=== PATIENT | female | born 1995 | race Two or more races ===

== ENCOUNTER 2020-04-05 08:26 | Outpatient (REF) | payer OTHER, SELFPAY | END 2020-04-05 08:27 | disposition home or self-care (01) | LOC: HO.LAB 08:26 | PROVIDERS: PCP Pediatrics; Visit Provider Internal Medicine | DX: Z20.828 Contact with and (suspected) exposure to other viral communicable diseases (principal) | CPT/HCPCS: C9803; U0003 ==

== ENCOUNTER 2024-07-30 14:16 | Outpatient (AMB) | payer OTHER, SELFPAY ==
[2024-07-30 14:20] VITALS: BP 106/60; BMI 26.0
--- NOTE | 2024-07-30 14:20 | MHC.OFFVIS ---
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 She has lots of questions about control she wants to know about all of the methods but in particular the ParaGard IUD and also about fertility awareness and how to know when she is ovulating she follows with an mary but she is not aware of the other symptoms and signs she is currently using her mary to tell her when are safe days and they are using condoms on the other days. She has 1 child born 05/11/2021 at [facility] she moved to [facility] for a while after an now she is back. [facility]LY [facility] Medical History (Updated 07/30/24 @ 15:22 by Lakesha Coello CNM) Pigmentary glaucoma Surgical History (Updated 07/30/24 @ 14:26 by ANTWAN Blevins) H/O eye surgery Family History (Updated 07/30/24 @ 14:27 by ANTWAN Blevins) Maternal Grandmother Ovarian cancer Social History (Updated 07/30/24 @ 14:27 by ANTWAN Blevins) Alcohol intake: never Patient Tobacco Use Status: Never used Tobacco Sexual orientation: Straight/Heterosexual Gender identity: Female Female Reproductive History Menstrual Age of Menarche: 8 Duration of menses: 6-7 days Date of last menstrual period: 07/13/24 control method: none Total pregnancies: 1 Full term: 1 Number of Living Children: 1 Physical Exam Vital Signs: Last Vital Signs BP 106/60 07/30/24 14:20 BMI result Body Mass Index 26.0 Const General: healthy appearing, comfortable, no acute distress, well developed and alert Nutritional Appearance: average body habitus Orientation/consciousness: patient oriented x3 Limitations: no limitations HEENT Head: Yes normocephalic Neck Neck: Yes normal visual inspection Chest Chest palpation & inspection: normal inspection of the chest Breast/axilla inspection: normal inspection of the breasts and normal inspection of the axillae Breast/axilla palpation: normal palpation of the breasts and normal palpation of the axillae Resp Effort & Inspection: normal respiratory effort GI Inspection: Yes normal to inspection, No Abdominal wall edema and No distended Palpation (GI): Soft to palpation and nontender Other: External exam within normal limits vagina is pink and moist cervix appears healthy multiparous with normal healthy appearing mucus possibly consistent with somewhat recent ovulation but not definitive cervix long close thick mobile nontender uterus is midposition mobile nontender no abnormal discharge noted cervix was friable with Pap and started bleeding immediately with Cytobrush. Moderate tone with Kegel. General: Yes bladder normal to palpation External Female Exam: normal external appearance and normal appearance of the urethra Speculum Exam - Vagina: normal appearance of the vagina, normal palpation and normal vaginal discharge Speculum Exam - Cervix: normal appearance of the cervix, normal palpation and nontender Bimanual exam- vagina & uterus: normal bimanual exam, normal palpation, uterine size normal, bladder normal to palpation, consistency normal, normal palpation, uterine mobility normal, uterine shape normal, No Cervical tenderness present, non-tender and no cervical motion tenderness Bimanual Exam- Adnexa, other: normal adnexae, no masses, normal and No adnexal tenderness Neuro General: patient oriented x3 Assessment & Plan Assessment & Plan (1) Well woman exam with routine gynecological exam: Code(s): Z01.419 - Encounter for gynecological examination (general) (routine) without abnormal findings Category: Medical (2) Cervical cancer screening: Code(s): Z12.4 - Encounter for screening for malignant neoplasm of cervix Category: Medical (3) control counseling: Code(s): Z30.09 - Encounter for other general counseling and advice on contraception Category: Medical (4) Encounter for screening examination for sexually transmitted disease: Code(s): Z11.3 - Encounter for screening for infections with a predominantly sexual mode of transmission Category: Medical Plan -----Discussed in this visit the following: healthy balanced diet, regular and consistent exercise, getting recommended health screens, doing the best she can for her particular health concerns, kegel exercises, pap smear screening and followup recommendations, mammography screening and SBE, normal changes in cycles in her life stage--- .-I reviewed with the patient, all of the currently common used methods of control that are available. We reviewed how they work in the body, how they are taken, common side effects, uncommon side effects, precautions, and contraindications. -Discussed also factors that influence their effectiveness and use, and womens satisfaction with the method. -Discussed how each are used, and drawbacks of each method as well. -Methods covered included: condoms, control pills, control patches, control rings, Depo-Provera, Nexplanon, Mirena and Kyleena IUDs, and ParaGard IUDs. All of the above methods were covered in great detail including their side effect profiles and common experiences that women have and ways to mitigate against the negative experiences including attention to diet and exercise patient's with bleeding challenges that may occur her and efforts to time the initiation of the method to this start of the menstrual period. Extensive teaching about the ParaGard IUD because that was her main method of concern and also extensive teaching about fertility awareness and all of its signs and symptoms and all of the close that she can use help tell when she is ovulating and to protection for several days on either side of the window . Orders: Orders Pap Smear Today Z01.419 - Encounter for gynecological examination (general) (routine) without abnormal findings Bacterial Vaginosis Panel Today Z01.419 - Encounter for gynecological examination (general) (routine) without abnormal findings CT NG by PCR Today Z01.419 - Encounter for gynecological examination (general) (routine) without abnormal findings Coding Level of Care Code New Pt Prev Care 18-39yr([id number] Diagnoses Well woman exam with routine gynecological exam Z01.419 Cervical cancer screening Z12.4 control counseling Z30.09 Encounter for screening examination for sexually transmitted disease Z11.3
--- OUTSIDE RECORDS SUMMARY | 2024-07-30 16:18 | XMS_ITS | Clinical Summary ---
Author Organization [facility] Address [address] [place] [address] Phone Care Team Providers Care Bindery Chief Name Role Phone Laury Madera MD Primary Care Provider [phone] Allergies Active Allergy Reactions Criticality Noted Date Comments Other Anaphylaxis High 05/08/2018 Seafood Pt has epipen Penicillins Low 07/24/2008 Other Reaction(s): Rash/Dermatitis Medications PNV/iron,carbon yl/folic acid ( VIT-IRON CARBONYL-FA ORAL) Take 1 tablet by mouth 1 (one) time each day. 0 Active EPINEPHrine (EpiPen 2-Atul) 0.3 mg/0.3 mL injection Inject 0.3 mg into the muscle as needed for Other (anaphylactic reaction). 2-pack. Fill with whichever brand is covered by insurance. 0 Active albuterol HFA (ProAir HFA) 90 mcg/actuation inhaler INHALE 2 PUFFS INTO THE LUNGS EVERY 4 HOURS NEEDED FOR COUGH 9 Active fluticasone propionate (FLONASE) 50 mcg/actuation nasal spray 2 sprays in each nostril daily 8 Active latanoprost (XALATAN) 0.005 % ophthalmic solution 1 Drop at bedtime. Apply 1 drop in each eye daily Active Active Problems Problem Noted Date Diagnosed Date Glaucoma 05/24/2024 Overview (05/24/2024): Pt takes xalatan ophthalmic solution q HS. Pt states she doesn't have a diagnosis of glaucoma - she uses solution for prevention. 2016 she had a procedure to remove excess intraocular fluid . FHX: Maternal grandmother with glaucoma Pt states in [facility] she was told she would need a delivery r/t this. Pt unable to get Ophtho appt until Apr. Patient was seen by ophthalmology Marcelino Souza MD On March 31, 2021 (note sent for scanning) Plan Dr. Souza recommends either option/safest option for the patient medically as long as the patient brings her eyedrops and is receiving them WHILE IN THE HOSPITAL. As long asIOP is being controlled by latanoprost while the patient is in the hospital, either method is okay. Patient is to return in 6 months for DFE evaluation after delivery renal anomaly, single gestation 03/14/2021 Overview (05/24/2024): Bilateral pelviectasis Persistent on repeat US Referral to Pediatric Surgery placed [phone] --Ointment scheduled for the week of May 04 Recurrent UTI (urinary tract infection) complicating 03/11/2021 Overview (05/24/2024): Per Transfer record - pt treated for UTI 10/20/20 UTI 12/15/20 UTI treated with cefadroxil 03/02/21 UTI treated with cefadroxil Immunizations Name Administration Dates Next Due DTaP (Infanrix) 6wks to less than 7yo ,02/02/1996,04/18/1995,02/08,1994 [id number] (Pentacel) 2mo to less than 5yo 09/17/1998,04/14/1995,02/08/1995,12/08 HPV, Quadrivalent 09/29/2009,08/16/2008,02/15/20 08 Hepatitis A Pediatric (Havri x; Vaqta) 12mo to less than 19yo 11/05/2014,11/22/2012 Hepatitis B Pediatric (Enger ix B; Recombivax HB) to less than 20 yo 06/18/1995,1994,1994 IPV Inactivated polio (Ipol) 6wks and older 12/17/1998,04/18/1995,02/08/1995,12/08 Influenza Quadravalent, MDCK , 0.5ml, preservative free (Flucelvax) 6mo and older 05/08/2018 MMR, measles mumps and rubel la Live (Priorix; M-M-R II) 12mo and older 01/03/1999,10/27/1995 Meningococcal MCV4P 01/03/2006 Moderna SARS-CoV-2 COVID-19, mRNA, LNP-S, preservative free 02/18/2021,01/21/2021 Pneumococcal polysaccharide 23 valent (Pneumovax 23) 2yo and older 05/08/2018 Tdap Tetanus diptheria acell ular pertussis (Boostrix; Adacel) 7yo and older 03/16/2021,05/08/2018,01/03/2006 Varicella live (Varivax) 12m o and older 08/16/2008,11/10/2004 Surgical History Surgery Date Site/Laterality Comments COLONOSCOPY 04/27/2013 PROCEDURE: HISTORICAL COLONOSCOPY; COMMENT: negative UPPER GASTROINTESTINAL ENDOSCOPY 04/27/2013 PROCEDURE: [place] UPPER GI ENDOSCOPY PERFORMED EYE SURGERY 06/2016 Left PROCEDURE: HISTORICAL EYE SURGERY Medical History Medical History Date Comments Asthma DX:Asthma Glaucoma DX:Glaucoma Vitamin D deficiency 2019 DX:Vitamin D deficiency Glaucoma 05/24/2024 Family History Medical History Relation Name Comments Other: no information Father Colon polyps Maternal Grandmother >10 Glaucoma Maternal Grandmother hyperte nsion Uterine cancer Maternal Grandmother Other: endometriosis Mother Uterine cancer Mother mother, uteri ne cancer <50 Ulcerative colitis Other 1 Uterine cancer Other 2 mets to liver and lungs; maternal great aunt Other: stomach cancer Other 3 matern al uncle 3 Prostate cancer Uncle 1 maternal unc le 1 Other: stomach cancer Uncle 2 matern al uncle 2 Blindness Neg Hx Breast cancer Neg Hx Cataracts Neg Hx Colon cancer Neg Hx Macular degeneration Neg Hx Strabismus Neg Hx Relation Name Status Comments Father Maternal Grandmother Alive Mother Other 1 Other 2 Alive Other 3 Other 4 paternal side unknown Alive Uncle 1 Alive Uncle 2 Alive Social History Tobacco Use Types Packs/Day Years Used Date Smoking Tobacco: Never Smokeless Tobacco: Never Alcohol Use Standard Drinks/Week Comments No 0 (1 standard drink = 0.6 oz pur e alcohol) Comments Unknown Sex and Gender Information Value Date Recorded Sex Assigned at Not on file Legal Sex Female 2:14 AM EST Gender Identity Not on file Sexual Orientation Not on file Obstetrics History Plan of Treatment Upcoming Encounters Date Type Department Care Team (Late st Contact Info) Description 10/17/2024 11:15 AM EDT Office Visit Obstetrics and Gynecology - [place] [address] [place] [address] Kelsea Etienne, CNM [address] [place] [address] Health Maintenance Due Date Last Done Comments Hepatitis A Vaccines (2 of 2 - 2-dose series) 05/07/2015 11/05/2014, 11/22/2012 Depression Screening 04/25/2022 HIV Screening 04/25/2022 Hepatitis C Screening 04/25/2022 Social Influencers of Health Screening 04/25/2022 Cervical Cancer Screening: Pap Smear 04/29/2023 04/29/2020, 04/08/2020 COVID-19 Vaccine ( season) 2024 02/18/2021, 01/21/2021 Influenza Vaccine (#1) 2024 05/08/2018 DTaP,Tdap,and Td Vaccines (8 - Td or Tdap) 03/16/2031 03/16/2021, 05/08/2018, 01/03/2006, Additional history exists Hepatitis B Vaccines Completed 06/18/1995, 1994, 1994 HIB Vaccines Completed 09/17/1998, 03/24, 02/08/1995, Additional history exists IPV Vaccines Completed 12/17/1998, 08/22, 04/18/1995, Additional history exists MMR Vaccines Completed 01/03/1999, 10/27/1995 Meningococcal ACWY Vaccine Aged Out 01/03/2006 N o longer eligible based on patient's age to complete this topic Varicella Vaccines Completed 08/16/2008, 11/10/2004 HPV Vaccines Completed 09/29/2009, 07/22, 02/15/2008 Pneumococcal Vaccine: Pediatrics (0 to 5 Years) and At-Risk Patients (6 to 64 Years) Aged Out 05/08/2018 No longer eligible based on patient's age to complete this topic Meningococcal B Vacine Aged Out No lo nger eligible based on patient's age to complete this topic RSV Immunization Patients Under 20 months Aged Out No longer eligible based on patient's age to complete this topic Procedures Procedure Name Priority Date/Time Associated Diagnosis Comments PAP SMEAR Routine 04/29/2020 from Last 3 Months or Most Recently Relevant to Health Maintenance Results * Pap Smear (04/29/2020) Pap smear Negative, Abstracted us Historical Provider HEALTH MAINTENANCE Final Result from Last 3 Months or Most Recently Relevant to Health Maintenance [place] [address] [address] [place] [address] Care Teams Bindery Chief Relationship Specialty Start Date End Date Laury Madera MD [address] [facility] [address] [place] [phone] PCP - General Internal Medicine 03/14/20
== END 2024-07-30 15:23 | disposition home or self-care (01) ==
PROVIDERS: PCP Pediatrics; Visit Provider Advanced Practice Midwife
DX: Z01.419 Encounter for gynecological examination (general) (routine) without abnormal findings (principal); Z12.4 Encounter for screening for malignant neoplasm of cervix; Z30.09 Encounter for other general counseling and advice on contraception; Z11.3 Encounter for screening for infections with a predominantly sexual mode of transmission
CPT/HCPCS: 99385; 99459

== ENCOUNTER 2024-07-30 14:16 | Outpatient (REF) | payer MEDICAID, SELFPAY ==
[2024-07-30 17:21] LABS: Bacterial Vaginosis PCR NEGATIVE (Negative); Candida Group PCR NOT DETECTED (Not Detect); Candida glab krusei PCR NOT DETECTED (Not Detect); Trichomonas vaginalis PCR NOT DETECTED (Not Detect)
--- OUTSIDE RECORDS SUMMARY | 2024-07-30 17:21 | XMS_ITS | Encounter Summary ---
Author Organization [facility] Address [address] [place] [address] Phone Care Team Providers Care Brake Reliner Name Role Phone Fadumo Awad MD Primary Care Provider [phone] Encounter Details Date Type Department Care Team (Late st Contact Info) Description 06/10/2010 Documentation [facility] [place] Family Medicine [address] [place] [address] Family Medicine, Physician [address] [place], [place] [id number] Social History Tobacco Use Types Packs/Day Years Used Date Smoking Tobacco: Never Assessed Comments Unknown Sex and Gender Information Value Date Recorded Sex Assigned at Not on file Legal Sex Female 5:01 PM EDT Gender Identity Not on file Sexual Orientation Not on file documented as of this encounter Plan of Treatment Not on file documented as of this encounter Visit Diagnoses Not on filedocumented in this encounter Care Teams Brake Reliner Relationship Specialty Start Date End Date Fadumo Awad MD [address] [place] [address] [place] [address] PCP - General 12/31/16 09/02/22 documented as of this encounter
--- OUTSIDE RECORDS SUMMARY | 2024-07-30 17:21 | XMS_ITS | Encounter Summary ---
Author Organization [facility] Address [address] [place] [address] Phone Care Team Providers Care Adult Neuropsychologist Name Role Phone Fadumo Awad MD Primary Care Provider [phone] Encounter Details Date Type Department Care Team (Late st Contact Info) Description 03/08/2012 Documentation [facility] [place] Family Medicine [address] [place] [address] Family Medicine, Physician [address] [place], [place] [phone] Social History Tobacco Use Types Packs/Day Years [...] on filedocumented in this encounter Care Teams Adult Neuropsychologist Relationship Specialty Start Date End Date Fadumo Awad MD [address] [place] [address] [place] [address] PCP - General 12/31/16 09/02/22 documented as of this encounter
--- OUTSIDE RECORDS SUMMARY | 2024-07-30 17:21 | XMS_ITS | Encounter Summary ---
Author Organization [facility] Address [address] [place] [address] Phone Care Team Providers Care Cellophane Bath Mixer Name Role Phone Fadumo Awad MD Primary Care Provider [phone] Encounter Details Date Type Department Care Team (Late st Contact Info) Description 01/06/2017 Conversion Encounter [facility] [place] [address] [place] [address] Social History Tobacco Use Types Packs/Day Years Used Date Smoking Tobacco: Never Comments:Never smoker Comments Unknown Sex and Gender Information Value Date Recorded Sex Assigned at Not on file Legal Sex Female 5:01 PM EDT Gender Identity Not on file Sexual Orientation Not on file documented as of this encounter Plan of Treatment Not on file documented as of this encounter Visit Diagnoses Not on filedocumented in this encounter Care Teams Cellophane Bath Mixer Relationship Specialty Start Date End Date Fadumo Awad MD [address] [place] [address] PCP - General 12/31/16 09/02/22 documented as of this encounter
--- OUTSIDE RECORDS SUMMARY | 2024-07-30 17:21 | XMS_ITS | Encounter Summary ---
Author Organization [facility] Address [address] [place] [address] Phone Care Team Providers Care Truck Cleaner Name Role Phone Fadumo Awad MD Primary Care Provider [phone] Encounter Details Date Type Department Care Team (Late st Contact Info) Description 02/29/2012 Documentation [facility] [place] [address] [place] [address] Family Medicine, Physician [address] [place], [place] [phone] Social History Tobacco Use Types Packs/Day Years [...] on filedocumented in this encounter Care Teams Truck Cleaner Relationship Specialty Start Date End Date Fadumo Awad MD [address] [place] [address] [place] [address] PCP - General 12/31/16 09/02/22 documented as of this encounter
--- OUTSIDE RECORDS SUMMARY | 2024-07-30 17:21 | XMS_ITS | Encounter Summary ---
Author Organization [facility] Address [address] [place] [address] Phone Care Team Providers Care Ax Survey Worker Name Role Phone Fadumo Awad MD Primary Care Provider [phone] Encounter Details Date Type Department Care Team (Late st Contact Info) Description 02/29/2012 Documentation [facility] [place] Family Medicine [address] [place] [address] Family Medicine, Physician [address] [place], [place] [phone] Social History Tobacco Use Types Packs/Day Years [...] on filedocumented in this encounter Care Teams Ax Survey Worker Relationship Specialty Start Date End Date Fadumo Awad MD [address] [place] [address] [place] [address] PCP - General 12/31/16 09/02/22 documented as of this encounter
--- OUTSIDE RECORDS SUMMARY | 2024-07-30 17:21 | XMS_ITS | Encounter Summary ---
Author Organization [facility] Address [address] [place] [address] Phone Care Team Providers Care Agriculture Engineer Name Role Phone Fadumo Awad MD Primary Care Provider [phone] Encounter Details Date Type Department Care Team (Late st Contact Info) Description 06/19/2012 Documentation [facility] [place] Family Medicine [address] [place] [address] Family Medicine, Physician [address] [place], [place] [phone] Social History Tobacco Use Types Packs/Day Years [...] on filedocumented in this encounter Care Teams Agriculture Engineer Relationship Specialty Start Date End Date Fadumo Awad MD [address] [place] [address] [place] [address] PCP - General 12/31/16 09/02/22 documented as of this encounter
--- OUTSIDE RECORDS SUMMARY | 2024-07-30 17:21 | XMS_ITS | Clinical Summary ---
Author Organization [facility] Address [address] [place] [address] Phone Care Team Providers Care Ambulance Assistant Name Role Phone Laury Madera MD Primary Care Provider [phone] Allergies Active Allergy Reactions Criticality Noted Date [...] Maternal grandmother with glaucoma Pt states in health system she was told she would need a [...] repeat US Referral to Pediatric Surgery placed [phone] --Ointment scheduled for the week of May 04 Recurrent UTI (urinary tract infection) complicating 03/11/2021 Overview (05/24/2024): Per Transfer record - pt treated for UTI 10/20/20 UTI 12/15/20 UTI treated with cefadroxil 03/02/21 UTI treated with cefadroxil Immunizations Name Administration Dates Next Due DTaP (Infanrix) 6wks to less than 7yo ,02/02/1996,04/18/1995,02/08,1994 [id number] (Pentacel) 2mo to less than 5yo 09/17/1998,04/14/1995,02/08/1995,12/08 [...] COMMENT: negative UPPER GASTROINTESTINAL ENDOSCOPY 04/27/2013 PROCEDURE: [place] UPPER GI ENDOSCOPY PERFORMED EYE SURGERY 06/2016 [...] EDT Office Visit Obstetrics and Gynecology - [place] [address] [place] [address] Kelsea Etienne, CNM [address] [place] [address] Health Maintenance Due Date Last Done Comments [...] Most Recently Relevant to Health Maintenance [place] [address] [place] [address] [address] [place] [address] Care Teams Ambulance Assistant Relationship Specialty Start Date End Date Laury Madera MD [address] [facility] [address] [place] [phone] PCP - General Internal Medicine 03/14/20
--- OUTSIDE RECORDS SUMMARY | 2024-07-30 17:21 | XMS_ITS | Encounter Summary ---
Author Organization [facility] Address [address] [place] [address] Phone Care Team Providers Care Mortgage Processing Manager Name Role Phone Fadumo Awad MD Primary Care Provider [phone] Encounter Details Date Type Department Care Team (Late st Contact Info) Description 02/21/2013 Documentation [facility] [place] Family Medicine [address] [place] [address] Family Medicine, Physician [address] [place], [place] [phone] Social History Tobacco Use Types Packs/Day Years [...] on filedocumented in this encounter Care Teams Mortgage Processing Manager Relationship Specialty Start Date End Date Fadumo Awad MD [address] [place] [address] [place] [address] PCP - General 12/31/16 09/02/22 documented as of this encounter
--- OUTSIDE RECORDS SUMMARY | 2024-07-30 17:21 | XMS_ITS | Clinical Summary ---
Author Organization [facility] Address [address] [place] [id number] Phone Care Team Providers Care Crimping Machine Operator Name Role Phone Unavailable Primary Care Provider Unavailabl e Immunizations Immunization Administration Dates Next Due DTaP 5 12/17/1998, 6,04/18/1995,02/08/1995 ,1994 HPV, Quadrivalent 09/29/2009,08/16/2008,02/15/20 08 Hep A, Adult 11/05/2014 Hep A, ped/adol 11/05/2014,11/22/2012 Hep B, ped/adol 1994,1994 Hib (PRP-T) 09/17/1998,04/14/1995,02/08/1995 ,1994 IPV 12/17/1998,04/18/1995,02/08/1995 ,1994 Influenza, injectable, trivalent 02/28/2007 MMR 01/03/1999,10/27/1995 Meningococcal Polysaccharide 01/03/2006 Tdap 01/03/2006 Varicella 08/16/2008,11/10/2004 Family History Relation Name Status Comments Brother Brother: Asthma Maternal Grandmother Materna l grandmother: Migraines Mother Alive Mother: Endomet riosis Other Family history of Migraines, Family history of Asthma Social History Tobacco Use Types Packs/Day Years Used Date Smoking Tobacco: Never Comments:Never smoker Comments Unknown Sex and Gender Information Value Date Recorded Sex Assigned at Not on file Legal Sex Female 5:01 PM EDT Gender Identity Not on file Sexual Orientation Not on file Last Filed Vital Signs Vital Sign Reading Time Taken Comments Blood Pressure 108/69 05/14/2015 12:00 AM EST Pulse 118 11/05/2014 12:00 AM EDT Temperature 37.1 ??C (98.8 ??F) 05/14/2015 1 2:00 AM EST Respiratory Rate - - Oxygen Saturation - - Inhaled Oxygen Concentration - - Weight 52.1 kg (114 lb 12.8 oz) 015 12:00 AM EST Height 158.5 cm (5' 2.4 ) 11/05/2014 12 :00 AM EDT Body Mass Index 20.73 11/05/2014 12:00 AM EDT Plan of Treatment Health Maintenance Due Date Last Done Comments Hepatitis B Vaccines (3 of 3 - 3-dose series) 04/10/1995 1994, 1994 Consider Men B Vaccine (1 of 2 - Bexsero 2-dose series) 2010 DTaP,Tdap,and Td Vaccines (7 - Td or Tdap) 01/04/2016 01/03/2006, 12/17/1998, 02/02/1996, Additional history exists Influenza Vaccines (#1) 2023 02/28/2007 COVID-19 Vaccine ( season) 2024 HIB Vaccines Completed 09/17/1998, 03/24, 02/08/1995, Additional history exists IPV Vaccines Completed 12/17/1998, 03/24, 02/08/1995, Additional history exists MMR Vaccines Completed 01/03/1999, 10/27/1995 Varicella Vaccines Completed 08/16/2008, 11/10/2004 HPV Vaccines Completed 09/29/2009, 07/22, 02/15/2008 Hepatitis A Vaccines Completed 11/05/2014, 11/05/2014, 11/22/2012 Men B Vaccine Aged Out No longer luis daniel garcia based on patient's age to complete this topic Meningococcal Vaccine Aged Out No dar elvira eligible based on patient's age to complete this topic Pneumococcal Vaccine Aged Out No long er eligible based on patient's age to complete this topic
--- OUTSIDE RECORDS SUMMARY | 2024-07-30 17:21 | XMS_ITS | Encounter Summary ---
Author Organization [facility] Address [address] [place] [phone] Phone Care Team Providers Care Security Door Installer Name Role Phone Fadumo Awad MD Primary Care Provider [phone] Encounter Details Date Type Department Care Team (Late st Contact Info) Description 03/16/2012 Documentation [facility] [place] Family Medicine [address] [place] [address] Family Medicine, Physician [address] [place], [place] [id number] Social History Tobacco Use Types Packs/Day Years [...] on filedocumented in this encounter Care Teams Security Door Installer Relationship Specialty Start Date End Date Fadumo Awad MD [address] [place] [address] [place] [address] PCP - General 12/31/16 09/02/22 documented as of this encounter
--- OUTSIDE RECORDS SUMMARY | 2024-07-30 17:21 | XMS_ITS | Encounter Summary ---
Author Organization [facility] Address [address] [place] [address] Phone Care Team Providers Care Mold Capper Helper Name Role Phone Fadumo Awad MD Primary Care Provider Encounter Details Date Type Department Care Team (Late st Contact Info) Description 04/30/2013 Documentation [facility] [place] [address] [place] [address] Family Medicine, Physician [address] [place], [place] [phone] Social History Tobacco Use Types Packs/Day Years [...] on filedocumented in this encounter Care Teams Mold Capper Helper Relationship Specialty Start Date End Date Fadumo Awad MD [address] [place] [address] [place] [address] PCP - General 12/31/16 09/02/22 documented as of this encounter
--- OUTSIDE RECORDS SUMMARY | 2024-07-30 17:21 | XMS_ITS | Encounter Summary ---
Author Organization [facility] Address [address] [place] [address] Phone Care Team Providers Care Transformer Stock Clerk Name Role Phone Fadumo Awad MD Primary Care Provider [phone] Encounter Details Date Type Department Care Team (Late st Contact Info) Description 03/21/2013 Documentation [facility] [place] [address] [place] [address] Family Medicine, Physician [address] [place], [place] [phone] Social History Tobacco Use Types Packs/Day Years [...] on filedocumented in this encounter Care Teams Transformer Stock Clerk Relationship Specialty Start Date End Date Fadumo Awad MD [address] [place] [address] [place] [address] PCP - General 12/31/16 09/02/22 documented as of this encounter
--- OUTSIDE RECORDS SUMMARY | 2024-07-30 17:21 | XMS_ITS | Encounter Summary ---
Author Organization [facility] Address [address] [place] [address] Phone Care Team Providers Care Baffle Installer Name Role Phone Fadumo Awad MD Primary Care Provider [phone] Encounter Details Date Type Department Care Team (Late st Contact Info) Description 03/08/2012 Documentation [facility] [place] Family Medicine [address] [place] [address] Family Medicine, Physician [address] [place], [place] [phone] Social History Tobacco Use Types Packs/Day Years [...] on filedocumented in this encounter Care Teams Baffle Installer Relationship Specialty Start Date End Date Fadumo Awad MD [address] [place] [address] [place] [address] PCP - General 12/31/16 09/02/22 documented as of this encounter
--- OUTSIDE RECORDS SUMMARY | 2024-07-30 17:21 | XMS_ITS | Encounter Summary ---
Author Organization [facility] Address [address] [place] [address] Phone Care Team Providers Care Staff Educator Name Role Phone Fadumo Awad MD Primary Care Provider [phone] Encounter Details Date Type Department Care Team (Late st Contact Info) Description 05/21/2015 Documentation [facility] [place] [address] [place] [address] Family Medicine, Physician [address] [place], [place] [phone] Social History Tobacco Use Types Packs/Day Years [...] on filedocumented in this encounter Care Teams Staff Educator Relationship Specialty Start Date End Date Fadumo Awad MD [address] [place] [address] [place] [address] PCP - General 12/31/16 09/02/22 documented as of this encounter
[2024-07-30 17:50] LABS: CT PCR NOT DETECTED (Not Detect.); NG PCR NOT DETECTED (Not Detect.)
== END 2024-07-30 14:17 | disposition home or self-care (01) ==
LOC: HO.LNP 14:16
PROVIDERS: PCP Pediatrics; Visit Provider Advanced Practice Midwife
DX: Z01.419 Encounter for gynecological examination (general) (routine) without abnormal findings (principal)
CPT/HCPCS: 81515; 87491; 87591; 88175; 99385; 99459